=== PATIENT | female | born 1990 | race Caucasian/White ===

== ENCOUNTER 2019-11-09 15:21 | Emergency (ER) | payer OTHER, SELFPAY ==
[2019-11-09 15:25] VITALS: BP 141/93; PULSE 92; RESP 18; TEMP 36.3; O2SAT 100
--- NOTE | 2019-11-09 16:37 | ED.EYEPROB ---
HPI - Eye Problem General Chief complaint: Eye Problems <Lyric Iverson PA-C - Last Filed: 11/09/19 17:26> Stated complaint: L eye problem <MELLISSA Nam Last Filed: 11/09/19 17:26> Time Seen by Provider: 11/09/19 15:43 <MELLISSA Nam Last Filed: 11/09/19 17:26> Source: patient <MELLISSA Nam Last Filed: 11/09/19 17:26> Mode of arrival: ambulatory <MELLISSA Nam Last Filed: 11/09/19 17:26> Limitations: no limitations <MELLISSA Nam Last Filed: 11/09/19 17:26> History of Present Illness HPI Narrative: This is a 29 year old female that presents to the ER for left eye redness x 3 days. Reports she noted some irritation and drainage from the eye. Her son was recently diagnosed with conjunctivitis so she started using his eye drops. Reports since she has had increasing redness in her eye. Reports when she woke up this morning she also noted bruising and swelling to the eyelids. Reports she did have an episode of vomiting yesterday. Reports some pain in the eye when she looks down. Reports she does usually wear contacts, but has been wearing her glasses since onset. Denies fever, or vision changes. <Lyric Iverson PA-C - Last Filed: 11/09/19 17:26> Related Data Allergies/adverse reactions: Allergies Allergy/AdvReac Type Severity Reaction Status Date / Time codeine Allergy Mild Unknown Verified 11/09/19 15:34 <MELLISSA Nam Last Filed: 11/09/19 17:26> Review of Systems Review of Systems: Narrative: CONSTITUTIONAL: Denies fever EYES: Reports redness and discharge. Denies visual changes NEUROLOGIC: Denies headache <MELLISSA Nam Last Filed: 11/09/19 17:26> All systems reviewed & are unremarkable except as noted in HPI and below <MELLISSA Nam Last Filed: 11/09/19 17:26> [facility] Surgical History Surgical History: Surgical History (Updated 11/09/19 @ 16:52 by Lyric Iverson PA-C) History of section <Lyric Iverson PA-C - Last Filed: 11/09/19 17:26> Social History Social History: Social History Smoking status: Never smoker Gender identity (if verbalized by the patient): Female <Lyric Iverson PA-C - Last Filed: 11/09/19 17:26> Exam Narrative: Exam Narrative: GENERAL: Well-appearing, well-nourished, and in no acute distress. HEAD: Normocephalic, atraumatic. EYES: PERRLA and EOMI. Visual acuity 20/20 bilaterally. Left eye with diffuse conjunctival injection. Left upper and lower eyelid with mild-moderate bruising and swelling. Eyelid everted no foreign bodies noted. No uptake noted on fluorescein stain exam. Eye pressures normal (R 13, L 14) EXTREMITIES: Normal range of motion. No edema. SKIN: Warm, dry, no rash. NEURO: No focal deficits. Alert and oriented x3. PSYCH: Normal mood and affect <Lyric Iverson PA-C - Last Filed: 11/09/19 17:26> Course RESTORATIVE CARE TECHNICIAN/PA Physician Supervision For this patient encounter, I reviewed the RESTORATIVE CARE TECHNICIAN or PA documentation, treatment plan, and medical decision making; and I had [id number] time with this patient. Patient seen at the bedside with physician surgery assistant. Patient with recent development of what sounds like conjunctivitis for which she started using her son's eyedrops. Patient does report pruritus to the left eye and has been rubbing that eyes some. Patient also reports vomiting yesterday. Patient now with subconjunctival hemorrhage in addition to ecchymosis of her upper and lower eyelids on the left eye. Patient likely with low-level trauma causing the ecchymosis and subconjunctival hemorrhage in the face of current conjunctivitis. Plan will be ophthalmology consultation and likely discharge home with outpatient follow-up. <Joanie Wahl MD - Last Filed: 11/09/19 16:45> Consultations Consultation #1: Spoke with [facility] ophthalmology who reports that viral conjunctivitis can be hemorrhagic in nature and she is to c
== END 2019-11-09 17:35 | disposition home or self-care (01) ==
PROVIDERS: Emergency Provider Emergency Medicine
DX: H10.32 Unspecified acute conjunctivitis, left eye (principal)
CPT/HCPCS: 99282

== ENCOUNTER 2019-11-20 11:52 | Emergency (ER) | payer OTHER, SELFPAY ==
[2019-11-20 11:58] VITALS: BP 117/74; PULSE 90; RESP 19; TEMP 36.3; O2SAT 100
--- NOTE | 2019-11-20 12:37 | ED.GENADULT ---
HPI - General Adult General Chief complaint: Unspecified Stated complaint: 16 1/2 weeks -not feeling movement Time Seen by Provider: 11/20/19 12:08 Source: patient Mode of arrival: ambulatory Limitations: no limitations History of Present Illness HPI narrative: Patient is a 29-year-old female who presents to emergency department for evaluation of upper respiratory symptoms with congestion rhinorrhea cough fatigue chills with multiple individuals at home with influenza. Patient is [address] Connolly has had an ultrasound. Patient denies vomiting notes she has had some loose stools. Patient notes she has had some mild discomfort in the left adnexal region as well. Patient notes she has had decreased movement over the last 2 days. Related Data Allergies Allergy/AdvReac Type Severity Reaction Status Date / Time codeine Allergy Mild Unknown Verified 11/09/19 15:34 Review of Systems Review of Systems: All systems reviewed & are unremarkable except as noted in HPI and below PMFSH Surgical History Surgical History History of section Social History Social History Smoking status: Never smoker Gender identity (if verbalized by the patient): Female Exam Narrative: Exam Narrative: GENERAL: Well-appearing, well-nourished, and in no acute distress. HEAD: Normocephalic, atraumatic. EYES: PERRLA and EOMI. ENT: Nares clear, no rhinorrhea or epistaxis. Mucous membranes moist. Oropharynx without tonsillar hypertrophy exudate or other lesions. Bilateral TMs pearly lara nonbulging NECK: Supple. No adenopathy or masses. CHEST: Clear to auscultation. No respiratory distress. No wheezes rales or rhonchi HEART: Regular rate and rhythm. No murmur heard. EXTREMITIES: Normal range of motion. No edema. SKIN: Warm, dry, no rash. NEURO: No focal deficits. Alert and oriented x3. PSYCH: Normal mood and affect. Course Consultations Consultation #1: Spoke with Dr. Spann the water and fire technician who would like the patient to be started on Tamiflu and notes that the patient can follow in clinic for further evaluation of her symptoms Date: 11/20/19 Vital Signs Vital signs: Vital Signs Temperature 97.4 F L 11/20/19 11:58 Pulse Rate 90 11/20/19 11:58 Respiratory Rate 19 11/20/19 11:58 Blood Pressure 117/74 11/20/19 11:58 Pulse Oximetry 100 11/20/19 11:58 Temperature 97.4 F L 11/20/19 11:58 Pulse Rate 90 11/20/19 11:58 Respiratory Rate 19 11/20/19 11:58 Blood Pressure 117/74 11/20/19 11:58 Pulse Oximetry 100 11/20/19 11:58 Medical Decision Making MDM Narrative Medical decision making narrative: Patient in the room aware of case findings treatment plan and diagnosis agreeing to follow-up as directed with market reporter provided with reasons to return will be treated for influenza given the sick contacts at home patient in agreement with this plan is afebrile nontoxic-appearing without emesis Vital Signs Vital Signs: Vital Signs Temperature 97.4 F L 11/20/19 11:58 Pulse Rate 90 11/20/19 11:58 Respiratory Rate 19 11/20/19 11:58 Blood Pressure 117/74 11/20/19 11:58 Pulse Oximetry 100 11/20/19 11:58 Temperature 97.4 F L 11/20/19 11:58 Pulse Rate 90 11/20/19 11:58 Respiratory Rate 19 11/20/19 11:58 Blood Pressure 117/74 11/20/19 11:58 Pulse Oximetry 100 11/20/19 11:58 Lab Data Labs: Lab Results 11/20/19 Range/Units 13:06 Urine Color Straw (Yellow) Urine Appearance Cloudy H (Clear) Urine pH 7.0 (5.0-9.0) Ur Specific [place] 1.006 (1.001-1.035) Urine Protein Negative (Negative) mg/dL Urine Glucose (UA) Negative (Negative) mg/dL Urine Ketones Negative (Negative) mg/dL Ur Blood (Man) Negative (Negative) Urine Nitrate Negative (Negative) Urine Bilirubin Negative (Negati
[2019-11-20 13:21] LABS: Add Urine Microscopic? YES; Appearance Urine Cloudy (Clear); Bacteria Urine 3+ /hpf; Bilirubin Urine Negative (Negative); Blood Urine Negative (Negative); Color Urine Straw (Yellow); Glucose Urine UA Negative (Negative); Ketones Urine Negative (Negative); Leukocyte Esterase Ur Trace LEU/UL (Negative); Mucus Urine Rare /lpf; Nitrate Urine Negative (Negative); Protein Urine Negative (Negative); RBC Urine 0-2 /hpf (0-2); Specific Grav Ur 1.006 (1.001-1.035); Squamous Epithelial Cell Urine Many /hpf (Few); Urobilinogen Urine Negative mg/dL (<2.0)
== END 2019-11-20 14:16 | disposition home or self-care (01) ==
PROVIDERS: Emergency Medicine Emergency Medical Services; Emergency Provider Emergency Medicine
DX: O98.512 Other viral diseases complicating pregnancy, second trimester (principal); B34.9 Viral infection, unspecified; Z3A.16 16 weeks gestation of pregnancy
CPT/HCPCS: 81001; 87804; 99283

== ENCOUNTER 2020-02-13 13:00 | Outpatient (RCR) | payer OTHER, SELFPAY ==
[2020-02-16] MEDS: RHO(D) IMMUNE GLOBULIN 300 MCG SYRINGE IM (11:57)
== END 2020-05-13 23:59 | disposition home or self-care (01) ==
LOC: ANHLAB 13:00
PROVIDERS: Visit Provider Obstetrics & Gynecology
DX: Z29.13 Encounter for prophylactic Rho(D) immune globulin (principal); O36.0990 Maternal care for other rhesus isoimmunization, unspecified trimester, not applicable or unspecified; Z3A.00 Weeks of gestation of pregnancy not specified
CPT/HCPCS: 36415; 85461; 90384; 96372; J2790

== ENCOUNTER 2020-04-13 11:25 | Outpatient (CLI) | payer OTHER, SELFPAY ==
[2020-04-13 11:45] VITALS: BP 126/81; PULSE 104
[2020-04-13 12:00] VITALS: BP 127/61; PULSE 97
[2020-04-13 12:15] VITALS: BP 125/75; PULSE 95
[2020-04-13 12:22] LABS: Basophils Percent Auto 0.4 % (0.2-1.2); Eosinophils Percent Auto 0.5 % (0-4.4); Hematocrit 26.4 % (37.0-47.0); Hemoglobin 8.4 g/dL (12.0-15.0); Immature Granulocyte Absolute 0.09 K/mm3 (0.00-0.031); Immature Granulocyte Percent A 1.2 % (0-0.5); Lymphocytes Absolute Auto 1.34 K/mm3 (0.9-3.2); Lymphocytes Percent Auto 17.6 % (18.3-44.2); Mean Corpuscular HGB Conc 31.8 g/dl (32-36); Mean Corpuscular Hemoglobin 24.9 pg (26-34); Mean Corpuscular Volume 78.1 fl (80-100); Mean Platelet Volume 11.7 fl (7.4-10.4); Monocytes Absolute Auto 0.4 K/mm3 (0.1-0.6); Monocytes Percent Auto 5.3 % (2.6-8.5); Neutrophils Absolute Auto 5.7 K/mm3 (1.3-6.7); Platelet Count Result 237 k/mm3 (150-375); Red Blood Count 3.38 M/mm3 (4.2-5.4); Red Cell Distribution Width 14.6 % (11.5-14.5); White Blood Count 7.6 K/mm3 (4.5-10.0)
[2020-04-13 12:27] LABS: Alanine Aminotransferase 8 U/L (4-35); Alkaline Phosphatase 165 U/L (38-126); Anion Gap 9.6 mmol/L (7-16); Aspartate Amino Transferase 23 U/L (14-36); Bilirubin,Total < 0.1 mg/dL (0.2-1.3); Blood Urea Nitrogen 6 mg/dL (7-17); Calcium 8.4 mg/dL (8.4-10.2); Carbon Dioxide 21 mmol/L (22-30); Chloride 109 mmol/L (98-107); Estimated Glomerular Filt Rate > 60; Glucose 131 mg/dL (65-105); Potassium 3.6 mmol/L (3.4-5.0); Sodium 136 mmol/L (137-145); Uric Acid 5.8 mg/dL (2.5-7.5)
[2020-04-13 12:30] VITALS: BP 119/77; PULSE 94
[2020-04-13 12:45] VITALS: BP 116/77; PULSE 84
--- NOTE | 2020-04-13 12:55 | PC.NURSE ---
Called Dr. Greer with labs and BPs. Informed of hgb level. May D/C home without 24hr urine. Start OTC iron supplement BID.
== END 2020-04-13 13:03 | disposition home or self-care (01) ==
LOC: ANHOBOP 11:30 → ANHOBPP 11:31
PROVIDERS: Visit Provider Student in an Organized Health Care Education/Training Program
DX: O13.9 Gestational [pregnancy-induced] hypertension without significant proteinuria, unspecified trimester (principal)
CPT/HCPCS: 36415; 59025; 80053; 84550; 85025; 99199

== ENCOUNTER 2020-04-27 13:39 | Outpatient (CLI) | payer OTHER, SELFPAY ==
[2020-04-27 15:06] LABS: Hematocrit 26.2 % (37.0-47.0); Hemoglobin 8.4 g/dL (12.0-15.0); Mean Corpuscular HGB Conc 32.1 g/dl (32-36); Mean Corpuscular Hemoglobin 24.7 pg (26-34); Mean Corpuscular Volume 77.1 fl (80-100); Mean Platelet Volume 12.9 fl (7.4-10.4); Platelet Count Result 211 k/mm3 (150-375); Red Cell Distribution Width 15.4 % (11.5-14.5); White Blood Count 7.6 K/mm3 (4.5-10.0)
[2020-04-28 09:45] LABS: Rapid Plasma Reagin Non-Reactive (NonReactive)
== END 2020-04-27 13:40 | disposition home or self-care (01) ==
PROVIDERS: Visit Provider Obstetrics & Gynecology
DX: Z01.812 Encounter for preprocedural laboratory examination (principal)
CPT/HCPCS: 36415; 85027; 86592; 86850; 86900; 86901

== ENCOUNTER 2020-04-28 09:55 | Inpatient (IN) | payer OTHER, SELFPAY ==
--- NOTE | 2020-04-05 15:55 | PC.NURSE ---
VERIFIED WITH OR SCHEDULE AND PATIENT--C/S ON 04/28/20 AT 1200 PATIENT GIVEN REQUISITION FOR PRE-OP LAB DRAW ON 04/27/20
--- NOTE | 2020-04-27 17:35 | P.HP_ITS ---
H&P: HPI History of Present Illness Date/Time: 04/27/20 17:35 Chief complaint: Pre-admit Narrative: 30 y/o at 39 3/7 weeks with two prior deliveries, here for repeat. GBS positive. Good movement, no vaginal bleeding. Rh negative, has received Rhogam. Review of Systems Review of Systems: All systems reviewed & are unremarkable except as noted in HPI and below PMFSH Surgical History Surgical History History of section Family History Family History Father Diabetes mellitus Stented coronary artery Mother Seizure disorder Grandparent Breast cancer Social History Social History Smoking status: Never smoker Substance use: never Gender identity (if verbalized by the patient): Female Spiritual care concerns: No Meds Home Medications and Allergies Home Medications Medication Instructions Recorded Confirmed Type PNV cmb#95-ferrous fumarate-FA 1 tablet PO DAILY 04/05/20 04/05/20 History [] Allergies Allergy/AdvReac Type Severity Reaction Status Date / Time codeine Allergy Mild Unknown Verified 04/05/20 15:37 Exam Const: Orientation/consciousness: patient oriented x3 Other: Well-deve loped, well-nourished female in no acute distress. Neck: Thyroid: thyroid normal Lymphatic: no lymphadenopathy noted (in neck, axilla or inguinal nodes) Resp: Effort & Inspection: normal respiratory effort Auscultation: clear to auscultation bilaterally Cardio: Rate: regular rate Rhythm: regular rhythm Heart sounds: S1 normal heart sound present and S2 normal heart sound present GI: Other: ABD: Soft, nontender, gravid. Fundal height 42 cm. FHR ausc ultated. : General: Yes no CVA tenderness Other: Cervix closed, thick. Back/Spine/Pelvis: Back: no CVA tenderness Skin: General skin exam: normal color and no rashes or lesions noted Neuro: General: patient oriented x3 Extrem: Other: Extremities: nontender with no edema Psych: Mental Status: mental status grossly normal Affect: normal affect Assessment and Plan Assessment and plan (1) History of section: Code(s): Z98.891 - History of uterine scar from previous surgery Status: Acute Assessment and Plan: A: IUP at 39 3/7 weeks with prior x 2, desiring repeat. P: I have offered her a repeat . She understands risks of surgery to include risks of anesthesia, risks of pain, infection, bleeding, blood products, thromboembolic phenomena and damage to adjacent structures such as bowel, bladder, ureters, blood vessels and nerves. She understands all these risks and elects to proceed with surgery.
[2020-04-28] VITALS (29 sets, daily range): BP systolic 122–152; BP diastolic 61–89; PULSE 51–84; RESP 15–20; TEMP 36.2–36.9; O2SAT 94–100; BMI 35.4
--- NOTE | 2020-04-28 10:15 | LDADM ---
This patient, Aidee Hernandez, was admitted to Labor/Delivery/Recovery 120 on 04/28/20 at 09:55. Plans for labor, pain management and were discussed with patient. Patient/family oriented to hospital policies and general routines including ID bracelet, bed and alarms, visiting hours, pain management, procedures, bathroom and other care routines, personal items, smoking policy, room service/diet and guest tray routines, security routines, call light, and visiting hours. Patient/Family are encouraged to report perceived risks to care and to ask questions if they do not understand what they are told or what they should do. See [facility]BI[facility] for further documentation.
[2020-04-28] MEDS: LACTATED RINGERS 1,000 ML 125 ML IV CONT ×2 (10:29→12:00)
--- NOTE | 2020-04-28 11:31 | WPDANESEPPF ---
Anes - Initial Pre Proc Eval Procedure: Operation Date: 04/28/20 12:00 Proposed Procedures p Primary Section - Rm Mann MD Date/Time: 04/28/20 11:31 Surgeon: Rm Mann MD Pre Op Diagnosis: Patient Data Age: 30 Gender: F Height: 5 ft 1 in Weight: 85 kg Last Vital Signs Temp 36.6 C 04/28/20 10:08 Pulse 70 04/28/20 10:31 BP 145/76 H 04/28/20 10:31 Pulse Ox 99 04/28/20 10:30 Allergies Allergy/AdvReac Type Severity Reaction Status Date / Time codeine Allergy Mild Unknown Verified 04/05/20 15:37 Home Medications Medication Instructions Recorded Confirmed Type PNV cmb#95-ferrous fumarate-FA 1 tablet PO DAILY 04/05/20 04/05/20 History [] Patient hx anesthesia problems: none Family hx anesthesia problems: none PMFSH Surgical History Surgical History History of section Family History Family History Father Diabetes mellitus Stented coronary artery Mother Seizure disorder Grandparent Breast cancer Social History Social History Smoking status: Never smoker Substance use: never Gender identity (if verbalized by the patient): Female Spiritual care concerns: No Anes - Eval Final PreProcedure Day of Procedure 04/28/20 11:31 Patient weight: overweight Heart: regular rate and rhythm Lungs: clear to auscultation Airway: Mallampati scale class II Neurological: alert and oriented Last oral intake: >/= 8 hours ASA classification: II Emergent: no Anesthetic plan: proceed Anesthesia type and monitoring: regional spinal and standard monitoring Informed Consent: The patient's anesthetic plan and its attendant risks and benefits were discussed with the patient/family/POA. Questions were solicited and answers provided to the satisfaction of the patient/family/POA.
--- NOTE | 2020-04-28 12:12 | WPDHPUPDATE1 ---
History and Physical Update Update Date/Time: 04/28/20 12:12 History and Physical has been reviewed, including an updated exam of the patient. There are NO changes in the patient's condition. Risks, benefits, and alternatives have been discussed and questions answered. Patient agrees to proceed with procedure.
[2020-04-28] MEDS: ceFAZolin 2 GM/D5W 50 ML 2 GM/50 ML BAG IVPB (12:14)
--- NOTE | 2020-04-28 13:19 | PM.OBPRVD ---
OB - Delivery Note Procedure Delivery date: 04/28/20 Procedure: Procedures Operation Date: 04/28/20 12:00 <No data on this case meets the specified criteria> Repeat low transverse delivery Route of delivery: Estimated blood loss (mL): 607 Anesthesia type: Spinal Disposition: PACU Complications: None Narrative: The patient was taken to the operating room where she was prepared and draped in the usual sterile fashion in dorsal supine position with a leftward tilt. She received cefazolin preoperatively. Spinal anesthesia was found to be adequate. A Pfannenstiel skin incision was made along the previous scar line and was carried through to the underlying layer of the fascia. The fascia was incised in the midline and the incision was extended laterally. The fascia was dissected free of the underlying rectus muscles. The rectus muscles were in the midline. The peritoneum was identified, tented up and entered sharply. The peritoneal incision was extended superiorly and inferiorly with good visualization of the bladder. The bladder blade was placed. The vesicouterine peritoneum was identified, tented up and entered sharply. The incision was extended laterally and the bladder flap was developed. The bladder blade was replaced. The uterus was then incised sharply in a transverse fashion along the lower uterine segment. The incision was extended laterally. The 's head was delivered atraumatically to the sterile field, followed by the body. The nose and mouth were bulb suctioned. After a delay, the cord was clamped and cut. The infant was handed off the field. Cord blood was collected. The placenta was removed manually and was passed off the field. The uterus was exteriorized and cleared of all clots and debris. The uterine incision was reapproximated using 0 Monocryl in a running, locked fashion. A second, imbricating layer of the same suture was applied. Excellent hemostasis resulted as did excellent reapproximation of the normal anatomy. The uterus was returned the abdomen. The pelvis was irrigated copiously with warmed normal saline. Rigorous hemostasis was assured. The fascial layer was reapproximated using 0 Vicryl in a running fashion. The skin was closed with a running, subcuticular stitch of 4 0 Vicryl. Dermaflex was applied externally. Sponge, lap, needle and instrument counts were correct. The patient was taken to the recovery room in stable condition. The infant went to the nursery in stable condition. I was present and scrubbed the entire procedure. Baby Date of : 04/28/20 Time of : 12:47 Weeks of gestation at delivery: 39 Infant gender: Female Weight (pounds): 9 Weight (ounces): 10 Placenta delivery description: Manual Removal and Normal Configuration cord vessel description: 3 Vessels score one minute: 9 score five minutes: 9
--- NOTE | 2020-04-28 13:21 | P.DS_ITS ---
DS: Admitting Diagnosis Admitting Diagnosis Admitting Diagnosis: IUP at 39 3/7 weeks Prior <Rm Mann MD - Last Filed: 04/28/20 13:23> DS: Discharge Diagnosis Discharge Diagnosis (1) History of section: Code(s): Z98.891 - History of uterine scar from previous surgery <Rm Mann MD - Last Filed: 04/28/20 13:23> Status: Acute <Rm Mann MD - Last Filed: 04/28/20 13:23> OB - DS: Summary OB Procedures : None <Florin Greer MD - Last Filed: 04/30/20 09:17> OB Procedures Intrapartum: <Florin Greer MD - Last Filed: 04/30/20 09:17> OB Procedures: : None <Florin Greer MD - Last Filed: 04/30/20 09:17> Peripartum Data Procedures: Procedures Operation Date: 04/28/20 12:00 <No data on this case meets the specified criteria> Repeat low transverse delivery <Rm Mann MD - Last Filed: 04/28/20 13:23> Discharge Plan Discharge Attending physician on discharge: Rm Mann <Rm Mann MD - Last Filed: 04/28/20 13:23> Rm Mann <Florin Greer MD - Last Filed: 04/30/20 09:17> Discharging Clinician: Rm Mann <Rm Mann MD - Last Filed: 04/28/20 13:23> Rm Mann <Florin Greer MD - Last Filed: 04/30/20 09:17> Patient Disposition: Home, Self-Care <Rm Mann MD - Last Filed: 04/28/20 13:23> Activity: may shower, may drive after 2 weeks and pelvic rest <Rm Mann MD - Last Filed: 04/28/20 13:23> may shower, may drive after 2 weeks and pelvic rest <Florin Greer MD - Last Filed: 04/30/20 09:17> Diet: regular <Rm Mann MD - Last Filed: 04/28/20 13:23> regular <Florin Greer MD - Last Filed: 04/30/20 09:17> Discharge Instructions: Call or return if temperature above 100.4? F, increased abdominal pain, increased vaginal bleeding or any new problems. <Rm Mann MD - Last Filed: 04/28/20 13:23> Stand Alone Forms: General Discharge Information <Rm Mann MD - Last Filed: 04/28/20 13:23> Follow-up/Referrals: Rm Mann MD [Physician] - (4 weeks) <Rm Mann MD - Last Filed: 04/28/20 13:23> Discharge Medications: New hydrocodone-acetaminophen [Twilight] 5-325 mg tablet 1 - 2 tablet PO Q6H PRN (Reason: pain) Qty: 30 RF: 0 ibuprofen 600 mg tablet 600 mg PO Q6H PRN (Reason: cramps) Qty: 30 RF: 0 Niferex (Sumalate-Quatrefolic) 150 mg iron- 60 mg-1 mg tablet 1 tablet PO DAILY Qty: 30 RF: 0 No Action PNV cmb#95-ferrous fumarate-FA [] 28 mg iron- 800 mcg Tablet 1 tablet PO DAILY RF: 0 <Rm Mann MD - Last Filed: 04/28/20 13:23> Date of admission: 04/28/20 09:55 <Rm Mann MD - Last Filed: 04/28/20 13:23> Primary Care Provider: PHYSICIAN,TELEGRAPHIC SERVICE DISPATCHER <Rm Mann MD - Last Filed: 04/28/20 13:23> Admitting Provider: Rm Mann <Rm Mann MD - Last Filed: 04/28/20 13:23> Attending physician on admission: Rm Mann <Rm Mann MD - Last Filed: 04/28/20 13:23>
[2020-04-28] MEDS: OXYTOCIN 30 UNITS/NS 500 ML 30 UNITS/500 ML BAG 125 UNITS IV CONT (14:06)
[2020-04-28] MEDS: KETOROLAC 30 MG/ML VIAL (*BKC) IV PUSH (15:03)
--- NOTE | 2020-04-28 15:40 | OBPPTRN ---
Patient transferred to post room # 286 via stretcher. Support person present. Oriented to unit, room, information board, rooming in, admission packet and security measures. Patient verbalizes understanding.
--- NOTE | 2020-04-28 16:11 | PC.NURSE ---
0650 - Pt updated on condition in level 2 nursery. 0702 - Dr. Mcbride at STR side to discuss the infant status and POC.
[2020-04-28] MEDS: ONDANSETRON INJ 4 MG/2 ML VIAL IV PUSH (17:36)
[2020-04-28] MEDS: SIMETHICONE 80 MG TAB.CHEW PO (17:36)
[2020-04-28] MEDS: DEXTROSE 5%/0.45% SOD CHL 1,000 ML 125 ML IV CONT (17:37)
[2020-04-29] MEDS: SIMETHICONE 80 MG TAB.CHEW PO ×4 (03:12→23:11)
[2020-04-29] MEDS: IBUPROFEN 600 MG TABLET PO ×4 (03:12→23:12)
[2020-04-29 05:07] VITALS: BP 129/76; PULSE 72; RESP 16; TEMP 36.3; O2SAT 97
[2020-04-29 05:15] LABS: Basophils Absolute Auto 0.1 K/mm3 (0.0-0.1); Basophils Percent Auto 0.5 % (0.2-1.2); Eosinophils Percent Auto 0.2 % (0-4.4); Immature Granulocyte Absolute 0.08 K/mm3 (0.00-0.031); Immature Granulocyte Percent A 0.9 % (0-0.5); Lymphocytes Absolute Auto 1.74 K/mm3 (0.9-3.2); Lymphocytes Percent Auto 18.9 % (18.3-44.2); Mean Corpuscular Hemoglobin 24.8 pg (26-34); Mean Corpuscular Volume 77.4 fl (80-100); Mean Platelet Volume 12.3 fl (7.4-10.4); Monocytes Absolute Auto 0.5 K/mm3 (0.1-0.6); Monocytes Percent Auto 5.9 % (2.6-8.5); Neutrophils Absolute Auto 6.8 K/mm3 (1.3-6.7); Neutrophils Percent Auto 73.6 % (45.5-73.1); Platelet Count Result 167 k/mm3 (150-375); Red Blood Count 2.66 M/mm3 (4.2-5.4); Red Cell Distribution Width 15.2 % (11.5-14.5); White Blood Count 9.2 K/mm3 (4.5-10.0)
[2020-04-29 05:57] LABS: Hematocrit 20.6 % (37.0-47.0); Hemoglobin 6.6 g/dL (12.0-15.0)
[2020-04-29 08:05] VITALS: BP 128/82; PULSE 73; RESP 16; TEMP 37.1; O2SAT 96
--- NOTE | 2020-04-29 08:34 | WPDANLDPN2 ---
Anes-Prog Note L&D Date/Time: 04/29/20 08:34 Comfortable throughout: section Neuraxial method: spinal Epidural/Spinal procedure site: clean & non-tender Neuro status: Neuro function grossly intact. Cardiovascular status: normal Respiratory status: normal Airway patency: baseline Mental status: baseline Post-Op hydration status: normal Vital Signs: Last Vital Signs Temp 36.3 C L 04/29/20 05:07 Pulse 72 04/29/20 05:07 Resp 16 04/29/20 05:07 BP 129/76 04/29/20 05:07 Pulse Ox 97 04/29/20 05:07 I/O: Intake & Output 04/28/20 04/29/20 04/29/20 23:59 07:59 15:59 Intake Total 800 Output Total 517 1900 Balance -517 -1100 Post-procedural complaints: none Patient feedback: Patient satisfied with anesthetic care.
--- NOTE | 2020-04-29 08:35 | WPDANLDNPN2 ---
Anes-Prog Note L&D-Neuraxial Date/Time: 04/29/20 08:35 Neuraxial medications: intrathecal PF morphine Opiod-related complaints: none Patient feedback: Patient satisfied with post-operative pain management.
[2020-04-29] MEDS: POLYSACCHARIDE IRON COMPLEX 150 MG CAPSULE PO ×2 (09:26→16:36)
[2020-04-29] MEDS: DOCUSATE SODIUM 100 MG CAPSULE PO ×2 (09:26→16:36)
[2020-04-29] MEDS: MULTIVIT/MIN/PREN/FOL AC/IRON TABLET 1 TAB PO (09:26)
[2020-04-29 11:25] VITALS: BP 145/86; PULSE 78; RESP 18; TEMP 36.8; O2SAT 97
--- NOTE | 2020-04-29 14:00 | PC.NURSE ---
Consult with pt., mother reports is eagerly latching without difficulties or discomfort. Reviewed feeding cues, frequencies, duration of feedings, feeding elimination flow sheet, and signs of adequate intake. Mother states she has to wake infant for feedings, reviewed this is normal for newborns for the first several days. Advised to stimulate while feeding to keep awake and nursing. Nipple care reviewed. Requested mother to call out for RN/LC next feeding. Instructed feeding should be initiated three hours from start of last feeding or if feeding cues are noted before. Mother voiced understanding of information shared.
[2020-04-29] MEDS: TETANUS,DIPHTHERIA,AC PERTUSSIS ADULT (0.5 ML) BOOSTRIX IM (14:33)
--- NOTE | 2020-04-29 17:42 | P.PNOB_ITS ---
OB - PN: Subj Subjective Date/time seen: 04/29/20 17:42 Narrative: Pain OK. Tolerating diet. OB - PN: Obj Data Labs CBC & Chem 7: 04/29/20 04:45 Labs: Laboratory Results - last 24 hr 04/29/20 04:45 WBC 9.2 RBC 2.66 L Hgb 6.6 L* Hct 20.6 L* MCV 77.4 L MCH 24.8 L MCHC 32.0 RDW 15.2 H Plt Count 167 MPV 12.3 H Immature Gran % (Auto) 0.9 H Neut % (Auto) 73.6 H Lymph % (Auto) 18.9 [place] % (Auto) 5.9 Eos % (Auto) 0.2 Baso % (Auto) 0.5 Lymph # (Auto) 1.74 [place] # (Auto) 0.5 Eos # (Auto) 0.0 Baso # (Auto) 0.1 Abs Immat Gran (auto) 0.08 H Absolute Neuts (auto) 6.8 H Absolute Nucleated RBC 0.0 Nucleated RBC % 0.0 OB - PN A/P Plan Comments: A: POD#1, doing well. Anemic, but asymptomatic. P: Routine care. Supplement with iron. Exam Narrative: Exam Narrative: AVSS I/O OK ABD soft, nontender, fundus firm. Incision c/d/i. EXT nontender
[2020-04-29 20:00] VITALS: BP 128/79; PULSE 71; RESP 16; TEMP 36.7; O2SAT 97
[2020-04-30] MEDS: IBUPROFEN 600 MG TABLET PO (05:57)
[2020-04-30] MEDS: SIMETHICONE 80 MG TAB.CHEW PO ×2 (05:57→09:44)
[2020-04-30 08:05] VITALS: BP 138/85; PULSE 94; RESP 18; TEMP 36.9; O2SAT 99
[2020-04-30] MEDS: MULTIVIT/MIN/PREN/FOL AC/IRON TABLET 1 TAB PO (09:44)
[2020-04-30] MEDS: DOCUSATE SODIUM 100 MG CAPSULE PO (09:44)
[2020-04-30] MEDS: POLYSACCHARIDE IRON COMPLEX 150 MG CAPSULE PO (09:44)
--- NOTE | 2020-04-30 10:00 | PC.NURSE ---
Mother is able to independently latch with appropriate positioning/alignment. She denies any nipple discomfort, is feeding as required and waking infant to feed if needed. Infant has had at least 8 effective feedings in the past 24 hours, and is currently meeting outcomes for weight, output, jaundice and feeding frequencies. ICP has suggested supplement after due to 8% weight loss. Mother does not want to supplement and feels her milk is transitioning in. Suggested to wake to feed every 2-3 hours, stimulate while feeding to keep awake and nursing effectively for increased intake. Mother states she feels confident to continue effective at home. Reviewed transition to breast milk, signs of adequate intake, and engorgement/relief. Instructed to call ICP if intake/output less than required. Reviewed regular medications mother is taking. Information provided per [facility]. Reviewed community resources on the [facility] website and in the Mom/Baby guide. Information on outpatient services provided. Mother has no further questions at this time.
--- NOTE | 2020-04-30 10:36 | WPDANLDPN2 ---
Anes-Prog Note L&D Date/Time: 04/30/20 10:36 Comfortable throughout: section Neuraxial method: spinal Epidural/Spinal procedure site: clean & non-tender Neuro status: Neuro function grossly intact. Cardiovascular status: normal Respiratory status: normal Airway patency: baseline Mental status: baseline Post-Op hydration status: normal Vital Signs: Last Vital Signs Temp 36.7 C 04/29/20 20:00 Pulse 71 04/29/20 20:00 Resp 16 04/29/20 20:00 BP 128/79 04/29/20 20:00 Pulse Ox 97 04/29/20 20:00 Post-procedural complaints: none Patient feedback: Patient satisfied with anesthetic care.
--- NOTE | 2020-04-30 10:36 | WPDANLDNPN2 ---
Anes-Prog Note L&D-Neuraxial Date/Time: 04/30/20 10:36 Neuraxial medications: intrathecal PF morphine Opiod-related complaints: none Patient feedback: Patient satisfied with post-operative pain management.
--- NOTE | 2020-04-30 10:45 | PC.NURSE ---
Patient was given the opportunity to view the discharge video Mother & Baby Care, The First Two Weeks and to ask questions. Patient declined viewing the video and has been given the mother/baby guide for home reference.
[2020-05-01 09:29] VITALS: BP 137/86; PULSE 90; RESP 20; TEMP 36.7; O2SAT 99
== END 2020-04-30 13:25 | disposition home or self-care (01) | DRG 788 ==
LOC: ANHLDR 13:23 → ANHOB2 04-30 11:00 → ANHLDR 04-30 16:58 → ANHOB2 04-30 16:58
PROVIDERS: Admitting Provider Obstetrics & Gynecology; Visit Provider Student in an Organized Health Care Education/Training Program
PROC: 10D00Z1 Extraction of Products of Conception, Low, Open Approach (ICD-10-PCS; CPT 59514; principal; 2020-04-28 12:00)
DX: O34.211 Maternal care for low transverse scar from previous cesarean delivery (principal); O99.824 Streptococcus B carrier state complicating childbirth; Z3A.39 39 weeks gestation of pregnancy; Z37.0 Single live birth
CPT/HCPCS: 36415; 85025; 90715; A9270; J0131; J0690; J1885; J2274; J2370; J2405; J2590; J7120

== ENCOUNTER 2023-02-15 09:54 | Emergency (ER) | payer OTHER, SELFPAY ==
[2023-02-15 10:17] VITALS: BP 119/71; PULSE 72; RESP 18; TEMP 36.5; O2SAT 99
--- NOTE | 2023-02-15 10:58 | ED.GENADULT ---
HPI - General Adult General Chief complaint: Skin/Abscess/Foreign Body Stated complaint: bee sting Time Seen by Provider: 02/15/23 10:58 Source: patient, RN notes reviewed and old records reviewed Mode of arrival: ambulatory Limitations: no limitations History of Present Illness HPI narrative: 32-year-old female presents to the [facility] with complaints a bee sting to the right volar aspect forearm 2 days ago. Has been taking Benadryl. Over the last 2 days has had increased swelling, redness, warmth. Has full range of motion of the wrist, strong miscellaneous machine operator. Capillary refill under 2 seconds, positive radial pulse. Denies any lip or tongue swelling. No shortness of breath or chest pain. Onset (ago): day(s) (2) Related Data Allergies Allergy/AdvReac Type Severity Reaction Status Date / Time codeine Allergy Mild Unknown Verified 02/15/23 10:37 Review of Systems Review of Systems: All systems reviewed & are unremarkable except as noted in HPI and below Constitutional: Constitutional: Reports no additional constitutional complaints Eyes: Eyes: Reports no additional eye complaints ENT: Reports system reviewed and no additional complaints, except as documented Cardiovascular: Cardiovascular: Reports no additional cardiovascular complaints, Denies chest pain and Denies dyspnea Respiratory: Respiratory: Reports no additional respiratory complaints, Denies chest congestion, Denies cough and Denies dyspnea Gastrointestinal: Gastrointestinal: Reports no additional gastrointestinal complaints, Denies abdominal pain, Denies nausea and Denies vomiting Musculoskeletal: Musculoskeletal: Reports no additional musculoskeletal complaints Integumentary/Breasts: Skin/Breast: Reports as per HPI, Reports erythema, Reports rash and Reports skin swelling Neurologic: Reports system reviewed and no additional complaints, except as documented Psychiatric: Psychiatric: Reports no additional psychiatric complaints Allergic/Immunologic: Allergic/Immunologic: Reports no additional allergic/immunologic complaints [facility] Past Medical History Medical History Patient denies medical problems Surgical History Surgical History History of section Family History Family History Father Diabetes mellitus Stented coronary artery Mother Seizure disorder Grandparent Breast cancer Social History Social History (Reviewed 02/15/23 @ 11:10 by LASHON Hardin Smoking status: Never smoker Substance use: never Gender identity (if verbalized by the patient): Female Spiritual care concerns: No Comments At the time of my signature, I reviewed and agree with the nursing past medical, surgical, social, and family history. There is no relevant family history pertinent to the patient complaint. Exam Const: General: cooperative, healthy appearing, comfortable, no acute distress, well developed, alert and well nourished Nutritional Appearance: well nourished Orientation/consciousness: patient oriented x3 Limitations: no limitations HENMT: Head: normal to inspection Ears: hearing grossly normal bilaterally and external ears normal Face/Nose/Sinus: Normal external nose present, Normal nares present, Normal nasal mucous membranes and turbinates present and normal facial exam Face and sinus: normal facial exam Mouth: Yes Normal oral and palatal mucosa present, Yes lip normal and Yes moist mucous membranes Throat: posterior oropharynx normal and uvula midline Eyes: General: appearance normal, both eyes and all related structures Alignment and Position: alignment normal Periorbital: periorbital findings normal Pupils: Equal, round and reactive pupils present EOM: EOMs intact bilaterally Neck: Neck: normal visual inspection, full ROM, no lymphadenopathy and no meningeal signs Ch
== END 2023-02-15 11:15 | disposition home or self-care (01) ==
PROVIDERS: Emergency Provider Nurse Practitioner
DX: T63.441A Toxic effect of venom of bees, accidental (unintentional), initial encounter (principal); R22.31 Localized swelling, mass and lump, right upper limb
CPT/HCPCS: 99213; G0463

== ENCOUNTER 2023-10-01 16:20 | Emergency (ER) | payer OTHER, SELFPAY ==
[2023-10-01 16:30] VITALS: BP 127/66; PULSE 70; RESP 16; TEMP 36.4; O2SAT 100
--- NOTE | 2023-10-01 16:31 | ED.URI ---
HPI - URI/Sore Throat General Chief Complaint: Upper Respiratory Infection Stated Complaint: throat discomfort Time Seen by Provider: 10/01/23 16:30 History of Present Illness HPI Narrative: 33 y/o female presented for c/o 'lump in throat,' first noticed yesterday. States she feels the lump is in the way and she needs to clear her throat frequently, but denies significant pain. 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 Denies any other complaints. 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 Related Data Home Medications Medication Instructions Recorded Confirmed fluoxetine 10 mg capsule mg 10/01/23 10/01/23 Allergies Allergy/AdvReac Type Severity Reaction Status Date / Time codeine Allergy Mild Unknown Verified 10/01/23 16:30 Review of Systems Review of Systems: CONSTITUTIONAL: Denies body aches, fever, chills, or sweats. EYES: Denies visual changes, redness, or discharge. ENT: reports throat lump Denies rhinorrhea, congestion, or otalgia. CARDIOVASCULAR: Denies chest pain, palpitations, or edema. RESPIRATORY: Denies dyspnea. GASTROINTESTINAL: Denies abdominal pain, nausea, vomiting, or diarrhea. SKIN: Denies rash, itching, or wounds. MUSCULOSKELETAL: Denies back pain, joint pain, or myalgia. NEUROLOGIC: Denies headache PMFSH Past Medical History Medical History Patient denies medical problems Surgical History Surgical History History of section Family History Family History Father Diabetes mellitus Stented coronary artery Mother Seizure disorder Grandparent Breast cancer Social History Social History Smoking status: Never smoker Substance use: never Gender identity (if verbalized by the patient): Female Spiritual care concerns: No Exam Narrative: GENERAL: well-appearing, no acute distress. EYES: conjunctivae clear ENT: Mucous membranes moist. TM pearly lara with normal light reflex bilaterally; no tragal tenderness. Oropharynx mildly erythematous Tonsils enlarged 2+ right tonsillar exudate vs stone; No drooling, no hoarseness, no trismus, uvula midline. No tripod positioning, hot potato voice, or soft palate swelling. NECK: Supple. No lymphadenopathy CHEST: Clear to auscultation, breath sounds equal. No respiratory distress, speaks in full sentences. HEART: Regular rate and rhythm. No murmur heard. SKIN: Warm, dry, no rash. NEURO: Alert and oriented x3. Course Course Emergency Course: Patient is aware of diagnosis, understands and agrees to treatment plan. Anticipatory guidance given. Patient agrees to follow-up as directed and is aware of reasons to seek care at the emergency department. Portions of this record may have been created with voice recognition software Level of Care: Express Care Visit Vital Signs Vital signs: Vital Signs Temperature 97.5 F L 10/01/23 16:30 Pulse Rate 70 10/01/23 16:30 Respiratory Rate 16 10/01/23 16:30 Blood Pressure 127/66 10/01/23 16:30 Pulse Oximetry 100 10/01/23 16:30 Oxygen Delivery Room Air 10/01/23 16:30 Temperature 97.5 F L 10/01/23 16:30 Pulse Rate 70 10/01/23 16:30 Respiratory Rate 16 10/01/23 16:30 Blood Pressure 127/66 10/01/23 16:30 Pulse Oximetry 100 10/01/23 16:30 Oxygen Delivery Room Air 10/01/23 16:30 MDM - URI/Sore Throat MDM Narrative Medical decision making narrative: Neg strep result reviewed with pt. Discussed tonsil stones and advised supportive treatments and s/s to go to the ER. Recommended establishing with pcp. Patient is appropriate for outpatient treatment and follow-up. Differential Diagnosis Differential diagnosis: Likely upper respiratory infection, viral infection and pharyngitis Discharge Plan Discharge Clinical Impression:
== END 2023-10-01 17:00 | disposition home or self-care (01) ==
PROVIDERS: Emergency Provider Nurse Practitioner Family
DX: J35.8 Other chronic diseases of tonsils and adenoids (principal)
CPT/HCPCS: 87081; 87880; 99213; G0463

== ENCOUNTER 2023-10-16 14:35 | Emergency (ER) | payer OTHER, SELFPAY ==
--- NOTE | 2023-10-16 14:50 | ED.URI ---
HPI - URI/Sore Throat General Chief Complaint: Upper Respiratory Infection Stated Complaint: chest congestion,bilateral ear pain Time Seen by Provider: 10/16/23 14:50 Source: patient and RN notes reviewed Mode of arrival: ambulatory Limitations: no limitations History of Present Illness HPI Narrative: 33-year-old female presented for complaint of cough with chest tightness, headache, fevers and chills. Onset 2 days. States she feels shortness of breath and wheezing during her coughing fits. Denies nausea vomiting, diarrhea or lethargy. Denies known sick contacts. She used an inhaler that she found at home and taking ibuprofen for symptoms. MD elicited complaint: cough Related Data Home Medications Medication Instructions Recorded Confirmed fluoxetine 10 mg capsule 10 mg PO DAILY 10/01/23 10/16/23 etonogestrel 68 mg subdermal See Rx Instructions .Route .COMPLEX 10/16/23 10/16/23 implant (Nexplanon) Allergies Allergy/AdvReac Type Severity Reaction Status Date / Time codeine AdvReac Mild Hives Verified 10/16/23 14:39 Review of Systems Review of Systems: CONSTITUTIONAL: Endorses malaise, chills, sweats, fever EYES: Denies visual changes, redness, or discharge ENT: Reports rhinorrhea, congestion, otalgia CARDIOVASCULAR: Denies chest pain, palpitations, edema RESPIRATORY: Reports cough, post nasal drainage. Denies dyspnea GASTROINTESTINAL: Denies abdominal pain, vomiting, diarrhea SKIN: Denies rash or itching MUSCULOSKELETAL: Endorses myalgia NEUROLOGIC: endorses headache PMFSH Past Medical History Medical History Patient denies medical problems Surgical History Surgical History History of section Family History Family History Father Diabetes mellitus Stented coronary artery Mother Seizure disorder Grandparent Breast cancer Social History Social History Smoking status: Never smoker Substance use: never Gender identity (if verbalized by the patient): Female Spiritual care concerns: No Exam Narrative: GENERAL: Ill-appearing, nontoxic EYES: PERRLA, conjunctivae clear ENT: Mucous membranes moist. TM pearly lara with dull light reflex bilaterally; no tragal tenderness. Oropharynx erythematous without lesions or exudate, no drooling, no hoarseness, no trismus, uvula midline. CHEST: Clear to auscultation, breath sounds equal. No wheezing, rhonchi, rales, or stridor. No respiratory distress, speaks in full sentences. HEART: Regular rate and rhythm. No murmur heard. SKIN: Warm, dry, no rash. NEURO: Alert and oriented x3. PSYCH: Normal mood and affect Course Course Emergency Course: Patient is aware of diagnosis, understands and agrees to treatment plan. Anticipatory guidance given. Patient agrees to follow-up as directed and is aware of reasons to seek care at the emergency department. Portions of this record may have been created with voice recognition software Level of Care: Express Care Visit Vital Signs Vital signs: Vital Signs Temperature 99.6 F 10/16/23 14:52 Pulse Rate 120 H 10/16/23 14:52 Respiratory Rate 18 10/16/23 14:52 Blood Pressure 125/73 10/16/23 14:52 Pulse Oximetry 99 10/16/23 14:52 Oxygen Delivery Room Air 10/16/23 14:52 Temperature 99.6 F 10/16/23 14:52 Pulse Rate 120 H 10/16/23 14:52 Respiratory Rate 18 10/16/23 14:52 Blood Pressure 125/73 10/16/23 14:52 Pulse Oximetry 99 10/16/23 14:52 Oxygen Delivery Room Air 10/16/23 14:52 reviewed MDM - URI/Sore Throat MDM Narrative Medical decision making narrative: POS flu. Discussed physical exam findings. Advised supportive measures and signs/symptoms to go to the ER. Pt is appropriate for outpt treatment and f/u. Differential Diag
[2023-10-16 14:52] VITALS: BP 125/73; PULSE 120; RESP 18; TEMP 37.6; O2SAT 99
== END 2023-10-16 15:14 | disposition home or self-care (01) ==
PROVIDERS: Emergency Provider Nurse Practitioner Family; PCP Obstetrics & Gynecology
DX: J10.1 Influenza due to other identified influenza virus with other respiratory manifestations (principal); Z20.822 Contact with and (suspected) exposure to COVID-19
CPT/HCPCS: 87426; 87804; 99213; G0463